=== PATIENT | female | born 1990 | race Caucasian/White ===

== ENCOUNTER 2016-07-30 14:41 | Emergency (ER) | payer SELFPAY ==
[~2016-07-30] VITALS: Ht 165.1 cm; Wt 70.0 kg
[~2016-07-30 14:41] MED LIST: METR500T10 PO
[2016-07-30 14:42] VITALS: BP 127/61; PULSE 93; RESP 14; TEMP 97.5; O2SAT 99
== END 2016-07-30 23:59 | disposition left against medical advice (07) ==
LOC: NED 14:41
DX: R10.9 Unspecified abdominal pain (principal); Z53.21 Procedure and treatment not carried out due to patient leaving prior to being seen by health care provider
CPT/HCPCS: 99281

== ENCOUNTER 2016-09-17 17:55 | Emergency (ER) | payer OTHER ==
[~2016-09-17] VITALS: Ht 165.1 cm; Wt 70.0 kg
[2016-09-17 17:57] VITALS: BP 129/72; PULSE 96; RESP 20; TEMP 97.8; O2SAT 100
[2016-09-17] MEDS ORDERED: AZITHROMYCIN PWD FOR SUSP 1 GM PACKET PO ONE (20:45)
[2016-09-17] MEDS ORDERED: cefTRIAXone 250 MG VIAL IM ONE (20:45)
--- NOTE | 2016-09-17 21:01 | PD ---
HPI Chief Complaint: Back/ Neck Pain or Injury Time Seen by Provider: 20:52 Travel History International Travel<30 days: No Contact w/Intl Traveler<30days: No Traveled to known affect area: No History of Present Illness HPI 25-year-old white female presents to emergency department with lower back pain. She states that she woke earlier this morning with severe lower back pain. She states is worse on the right side with radiation into her groin. She states that she's had sciatica in the past and that this is different. She feels that this is somehow related to a chronic pelvic pain that she has had along with a yellowish vaginal discharge. She states that she has been seen multiple times in the ER for the same. She states that she had not had cultures or antibiotics. She followed up with her [employer] doctor Dr. Michele who had to dilate her cervix and remove her IUD which was being implanted into her uterus. She states that she has had persistent yellowish vaginal discharge. She states that she feels febrile but has not documented a fever. She denies any abdominal pain. She's had no nausea vomiting. No diarrhea. No dysuria or frequency. She denies any trauma. IV drug use. PFSH Past Medical History Narrative Medical Sciatica, pyelonephritis, IUD complications Hx Anticoagulant Therapy: No Autoimmune Disease: No Blood Disorders: No Cardiovascular Problems: No Chemotherapy: No Cerebrovascular Accident: No Diabetes: No Diminished Hearing: No Genitourinary: No Musculoskeletal: No Neurologic: No Psychiatric: No Reproductive: Yes (ENDOMETRIOSIS) Respiratory: No Tetanus Vaccination: < 5 Years ?: Not Ovarian Cysts: Yes Past Surgical History Other Surgery: No Social History Alcohol Use: No Tobacco Use: Yes Substance Use: No Allergies-Medications (Allergen,Severity, Reaction): Coded Allergies: No Known Allergies (Verified , 09/17/16) Reported Meds & Prescriptions Reported Meds & Active Scripts Active Metronidazole 500 Mg Tab 500 Mg PO BID 7 Days Review of Systems Except as stated in HPI: all other systems reviewed are Neg General / Constitutional: Positive: Fever (subjective), No: Chills Eyes: No: Diploplia, Blurred Vision HENT: No: Headaches, Sore Throat Cardiovascular: No: Chest Pain or Discomfort, Palpitations Respiratory: No: Cough, Shortness of Breath Gastrointestinal: No: Nausea, Vomiting Genitourinary: Positive: Pelvic Pain, No: Urgency, Frequency, Dysuria Musculoskeletal: Positive: Limited ROM, Cramping, Pain Skin: No Rash, No Itching Physical Exam Narrative GENERAL: Well-developed, well-nourished in no apparent distress. Nontoxic appearing. HEAD: Normocephalic, atraumatic. EYES: Pupils equal round and reactive. Extraocular motions intact. No scleral icterus. No injection or drainage. ENT: Nose clear. Throat without erythema, tonsillar hypertrophy or exudate. Uvula midline. Airway patent. NECK: Trachea midline. Supple, nontender, moves head freely. No central bony tenderness or spasm. CARDIOVASCULAR: Regular rate and rhythm without murmurs, gallops, or rubs. RESPIRATORY: Clear to auscultation. Breath sounds equal bilaterally. No wheezes , rales, or rhonchi. GASTROINTESTINAL: Abdomen soft, non-tender exam to the abdomen patient does have some mild suprapubic tenderness, nondistended. No hepato-splenomegaly, or palpable masses. No guarding. EXTREMITIES: No clubbing, cyanosis, or edema. No joint tenderness. BACK: No central bony tenderness. Patient has reproducible right paralumbar tenderness. Without deformity. No flank tenderness.Positive straight leg raise on the right at 90. No saddle anesthesia. NEUROLOGICAL: Awake, alert and oriented x 3 .Cranial nerves grossly intact. Motor and sensory grossly within normal limits. Normal speech. Data Data Last Documented VS Vital Signs Date Time Temp Pulse Resp B/P Pulse Ox O2 Delivery O2 Flow Rate FiO2 09/17/16 17:57 97.8 96 20 129/72 100 Room Air Orders Complete Blood Count With Diff (09/17/16 20:38) Comprehensive Metabolic Panel (09/17/16 20:38) C-Reactive Protein (Crp) (09/17/16 20:38) Urinalysis - C+S If Indicated (09/17/16 20:38) Wet Prep Profile (09/17/16 20:38) Gc And Chlamydia Pcr (09/17/16 20:38) Iv Access Insert/Monitor (09/17/16 20:38) Ceftriaxone Inj (Rocephin Inj) (09/17/16 20:45) Azithromycin Powd Pack (Zithromax Powd P (09/17/16 20:45) [facility] Medical Decision Making Medical Screen Exam Complete: Yes Emergency Medical Condition: Yes Medical Record Reviewed: Yes Differential Diagnosis Differential diagnoses: Back strain, spasm, lumbar radiculopathy, vaginitis, ovarian cysts, pyelonephritis, UTI Narrative Course IV access is obtained. Routine laboratory tests sent for analysis. Patient's given Rocephin 250 IM and Zithromax 1 g by mouth. The patient will be moved to a medical pot for her pelvic and further evaluation and treatment. Patient's transfer care to the [facility] Mehrdad Hinojosa Sep 17, 2016 21:01
[2016-09-17 21:36] LABS: AUTOMATED NEUTROPHIL # 3.7 TH/MM3 (1.8-7.7); BASOPHIL % 0.6 % (0.0-2.0); EOSINOPHIL # 0.3 TH/MM3 (0-0.4); EOSINOPHIL % 4.5 % (0.0-4.0); HEMATOCRIT 41.5 % (35.0-46.0); HEMO FLAGS DIFF FINAL; LYMPH % 33.5 % (9.0-44.0); LYMPHOCYTE # 2.5 TH/MM3 (1.0-4.8); MEAN CELL VOLUME 91.4 FL (80.0-100.0); MEAN CORPUSCULAR HEMOGLOBIN 31.3 PG (27.0-34.0); MEAN CORPUSCULAR HGB CONC 34.3 % (32.0-36.0); MONO % 11.1 % (0.0-8.0); NEUT % 50.3 % (16.0-70.0); PLATELET COUNT 293 TH/MM3 (150-450); RED BLOOD COUNT 4.54 MIL/MM3 (4.00-5.30); RED CELL DISTRIBUTION WIDTH 12.8 % (11.6-17.2); WHITE BLOOD COUNT 7.5 TH/MM3 (4.0-11.0)
[2016-09-17 22:19] LABS: BACTERIA, URINE RARE /hpf; BLOOD, URINE NEG (NEG); COMMENT (UR) CULT NOT INDICATED; CULTURE IF INDICATED CULT NOT INDICATED; GLUCOSE,URINE NEG (NEG); KETONE, URINE NEG (NEG); NITRITE,URINE NEG (NEG); SQUAMOUS EPITHELIAL CELL URINE 1 /hpf (0-5); URINE COLOR COLORLESS (YELLW/STRAW)
[2016-09-17] MEDS ORDERED: ONDANSETRON HCL 4 MG/2 ML VIAL IV ONE (23:15)
[2016-09-17 23:19] LABS: ANION GAP 7 MEQ/L (5-15); AST (GOT) 14 U/L (15-37); BICARBONATE 27.5 MEQ/L (21.0-32.0); BLOOD UREA NITROGEN 9 MG/DL (7-18); CHLORIDE 106 MEQ/L (98-107); GLOMERULAR FILTRATION RATE 100 ML/MIN (>89); POTASSIUM 3.7 MEQ/L (3.5-5.1); SODIUM (NA) 140 MEQ/L (136-145)
[2016-09-17 23:23] LABS: ALKALINE PHOSPHATASE 89 U/L (45-117); ALT (GPT) 20 U/L (10-53); TOTAL BILIRUBIN ADULT 0.1 MG/DL (0.2-1.0)
[2016-09-18] MEDS ORDERED: MELO-1 PO (01:15)
--- NOTE | 2016-09-18 01:16 | PD ---
Data Data Last Documented VS Vital Signs Date Time Temp Pulse Resp B/P Pulse Ox O2 Delivery O2 Flow Rate FiO2 09/17/16 17:57 97.8 96 20 129/72 100 Room Air Orders Complete Blood Count With Diff (09/17/16 20:38) Comprehensive Metabolic Panel (09/17/16 20:38) C-Reactive Protein (Crp) (09/17/16 20:38) Urinalysis - C+S If Indicated (09/17/16 20:38) Wet Prep Profile (09/17/16 20:38) Gc And Chlamydia Pcr (09/17/16 20:38) Iv Access Insert/Monitor (09/17/16 20:38) Ceftriaxone Inj (Rocephin Inj) (09/17/16 20:45) Azithromycin Powd Pack (Zithromax Powd P (09/17/16 20:45) Ondansetron Inj (Zofran Inj) (09/17/16 23:15) Labs Laboratory Tests Test 09/17/16 09/17/16 09/17/16 09/18/16 21:04 21:50 22:20 00:10 White Blood Count 7.5 TH/MM3 Red Blood Count 4.54 MIL/MM3 Hemoglobin 14.2 GM/DL Hematocrit 41.5 % Mean Corpuscular Volume 91.4 FL Mean Corpuscular Hemoglobin 31.3 PG Mean Corpuscular Hemoglobin 34.3 % Concent Red Cell Distribution Width 12.8 % Platelet Count 293 TH/MM3 Mean Platelet Volume 8.8 FL Neutrophils (%) (Auto) 50.3 % Lymphocytes (%) (Auto) 33.5 % Monocytes (%) (Auto) 11.1 % Eosinophils (%) (Auto) 4.5 % Basophils (%) (Auto) 0.6 % Neutrophils # (Auto) 3.7 TH/MM3 Lymphocytes # (Auto) 2.5 TH/MM3 Monocytes # (Auto) 0.8 TH/MM3 Eosinophils # (Auto) 0.3 TH/MM3 Basophils # (Auto) 0.0 TH/MM3 CBC Comment DIFF FINAL Differential Comment Urine Color COLORLESS Urine Turbidity CLEAR Urine pH 6.0 Urine Specific [place] 1.005 Urine Protein NEG mg/dL Urine Glucose (UA) NEG mg/dL Urine Ketones NEG mg/dL Urine Occult Blood NEG Urine Nitrite NEG Urine Bilirubin NEG Urine Urobilinogen LESS THAN 2.0 MG/DL Urine Leukocyte Esterase NEG Urine RBC LESS THAN 1 /hpf Urine WBC 1 /hpf Urine Squamous Epithelial 1 /hpf Cells Urine Bacteria RARE /hpf Microscopic Urinalysis Comment CULT NOT INDICATED Sodium Level 140 MEQ/L Potassium Level 3.7 MEQ/L Chloride Level 106 MEQ/L Carbon Dioxide Level 27.5 MEQ/L Anion Gap 7 MEQ/L Blood Urea Nitrogen 9 MG/DL Creatinine 0.72 MG/DL Estimat Glomerular Filtration 100 ML/MIN Rate Random Glucose 86 MG/DL Calcium Level 9.1 MG/DL Total Bilirubin 0.1 MG/DL Aspartate Amino Transf 14 U/L (AST/SGOT) Alanine Aminotransferase 20 U/L (ALT/SGPT) Alkaline Phosphatase 89 U/L C-Reactive Protein 0.46 MG/DL Total Protein 7.5 GM/DL Albumin 4.0 GM/DL Clue Cells (Wet Prep) PRESENT Vaginal Trichomonas (Wet Prep) NONE SEEN Vaginal Yeast (Wet Prep) NONE SEEN MDM Supervised Visit with MAYRA: Yes Narrative Course The history, exam, and medical decision-making in the associated midlevel provider note were completed with my assistance. I reviewed and agree with the findings presented. I attest that I had a [id number] encounter with the patient on the same day, and personally performed and documented my assessment and findings in the medical record. *My assessment and Findings: This is a 25-year-old female who presents to the emergency department with several days of right flank pain and intermittent fevers and chills. She is fairly convinced that this is a side effect of her having her IUD removed. She's had increasing discharge and is concerned about a pelvic infection. She is well-appearing on exam and nontoxic. Labs are obtained which were all reassuring. Urinalysis is negative for infection or blood. A pelvic exam was performed which was fairly unremarkable. She had some white vaginal discharge in the vault but no cervical motion tenderness or adnexal tenderness. Patient was positive for bacterial vaginosis. 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 Diagnosis Primary Impression: Bacterial vaginosis Additional Impression: Back pain Qualified Code: M54.9 - Other acute back pain Patient Instructions: General Instructions Additional Instruction: If you develop severe or worsening abdominal pain, fever>100.4, persistent vomiting or inability to eat or drink return to the emergency department immediately. Follow up with your primary care physician in 1-2 days for a check-up. Med/Other Pt SpecificInfo: Prescription(s) given Scripts Meloxicam 15 Mg Tab15 Mg PO DAILY #14 TAB Ref 0 Prov:Alexa Childers MD 09/18/16 Disposition: 01 DISCHARGE HOME Condition: Stable Alexa Childers MD Sep 18, 2016 01:15
[2016-09-18] MEDS ORDERED: METR-1 PO (01:17)
[2016-09-18] MEDS ORDERED: METR0.7528 VAGINAL (01:18)
[2016-09-18] MEDS ORDERED: KETOROLAC TROMETHAMINE 30 MG/ML (IVP) VIAL IV PUSH ONE (01:30)
[2016-09-18 02:01] LABS: CHLAMYDIA PCR NOT DETECTED (NOT DETECT); NEISSERIA PCR NOT DETECTED (NOT DETECT)
== END 2016-09-18 02:03 | disposition home or self-care (01) ==
LOC: NEPB 17:55 → NEPA 09-18 02:03
DX: N76.0 Acute vaginitis (principal); M54.5 Low back pain; Z72.0 Tobacco use; Z87.39 Personal history of other diseases of the musculoskeletal system and connective tissue; Z87.448 Personal history of other diseases of urinary system; Z87.42 Personal history of other diseases of the female genital tract
CPT/HCPCS: 80053; 81001; 85025; 86140; 87210; 87491; 87591; 96372; 96374; 96375; 99283; J0696; J1885; J2405

== ENCOUNTER 2016-10-11 20:35 | Emergency (ER) | payer OTHER ==
[~2016-10-11] VITALS: Ht 165.1 cm; Wt 70.5 kg
[~2016-10-11 20:35] MED LIST changes: +MELO-1 PO; +METR-1 PO; +METR0.7528 VAGINAL
[2016-10-11 20:36] VITALS: BP 115/99; PULSE 86; RESP 16; TEMP 99.1; O2SAT 100
[2016-10-11 21:07] VITALS: BP 145/69
[2016-10-11] MEDS ORDERED: ONDANSETRON HCL 4 MG/2 ML VIAL IV ONE (21:15)
[2016-10-11] MEDS ORDERED: SODIUM CHLOR 0.9% 1000 ML INJ 1,000 ML IV ONE (21:15)
[2016-10-11] MEDS ORDERED: TETANUS/DIPHTHERIA TOXOID ADULT 0.5 ML VIAL IM ONE (21:15)
--- NOTE | 2016-10-11 21:17 | PD ---
HPI Chief Complaint: GI Complaint Time Seen by Provider: 21:04 Travel History International Travel<30 days: No Contact w/Intl Traveler<30days: No Traveled to known affect area: No History of Present Illness HPI The patient was seen and examined in the presence of the nurse. This patient complains of nausea and vomiting. Duration 2 days. Severity is moderate. She has no abdominal or pelvic pain or diarrhea or fever. He relates that 5 days ago she was bit in the right thigh by the neighbor's dog. Can't recall her last tetanus booster. No alleviating factors. No ill contacts. PFSH Past Medical History Hx Anticoagulant Therapy: No Autoimmune Disease: No Blood Disorders: No Cardiovascular Problems: No Chemotherapy: No Cerebrovascular Accident: No Diabetes: No Diminished Hearing: No Genitourinary: No Musculoskeletal: No Neurologic: No Psychiatric: No Reproductive: Yes (ENDOMETRIOSIS) Respiratory: No ?: Unknown Ovarian Cysts: Yes Past Surgical History Surgical History: No Previous Surgery Other Surgery: No Social History Alcohol Use: No Tobacco Use: Yes Substance Use: No Allergies-Medications (Allergen,Severity, Reaction): Coded Allergies: No Known Allergies (Verified , 10/11/16) Reported Meds & Prescriptions Reported Meds & Active Scripts Active Review of Systems General / Constitutional: No: Fever Eyes: No: Visual changes HENT: No: Headaches Cardiovascular: No: Chest Pain or Discomfort Respiratory: No: Shortness of Breath Gastrointestinal: Positive: Nausea, Vomiting, No: Abdominal Pain Genitourinary: No: Dysuria Musculoskeletal: No: Pain Skin: No Rash Neurologic: No: Weakness Psychiatric: No: Depression Endocrine: No: Polydipsia Hematologic/Lymphatic: No: Easy Bruising Physical Exam Narrative GENERAL: Well-nourished, well-developed patient in no apparent distress. SKIN: Focused skin assessment reveals no rash and nodules. Skin is Warm and dry. HEAD: Atraumatic. Normocephalic. EYES: Pupils equal and round. No scleral icterus. No injection or drainage. ENT: No nasal bleeding or discharge. Mucous membranes pink and moist. NECK: Trachea midline. No JVD. CARDIOVASCULAR: Regular rate and rhythm. No murmur appreciated. RESPIRATORY: No accessory muscle use. Clear to auscultation. Breath sounds equal bilaterally. GASTROINTESTINAL: Abdomen soft, non-tender, nondistended. Hepatic and splenic margins not palpable. MUSCULOSKELETAL: No obvious deformities. No clubbing. No cyanosis. No edema. There is a small scabbed over area without sign of infection. NEUROLOGICAL: Awake and alert. No obvious cranial nerve deficits. Motor grossly within normal limits. Normal speech. PSYCHIATRIC: Appropriate mood and affect; insight and judgment normal. Data Data Last Documented VS Vital Signs Date Time Temp Pulse Resp B/P Pulse Ox O2 Delivery O2 Flow Rate FiO2 10/11/16 21:07 145/69 10/11/16 20:36 99.1 86 16 100 Room Air Orders Tetanus/Diphtheria Tox Adult (Tetanus/Di (10/11/16 21:15) Ondansetron Inj (Zofran Inj) (10/11/16 21:15) Sodium Chlor 0.9% 1000 Ml Inj (Ns 1000 M (10/11/16 21:15) Complete Blood Count With Diff (10/11/16 21:12) Basic Metabolic Panel (Bmp) (10/11/16 21:12) Ed Urine Pregnancytest Poc (10/11/16 21:12) Urinalysis - C+S If Indicated (10/11/16 21:12) Labs Laboratory Tests Test 10/11/16 21:30 White Blood Count 9.1 TH/MM3 Red Blood Count 4.34 MIL/MM3 Hemoglobin 13.8 GM/DL Hematocrit 38.9 % Mean Corpuscular Volume 89.7 FL Mean Corpuscular Hemoglobin 31.7 PG Mean Corpuscular Hemoglobin 35.3 % Concent Red Cell Distribution Width 12.4 % Platelet Count 249 TH/MM3 Mean Platelet Volume 8.5 FL Neutrophils (%) (Auto) 58.1 % Lymphocytes (%) (Auto) 31.9 % Monocytes (%) (Auto) 7.0 % Eosinophils (%) (Auto) 2.5 % Basophils (%) (Auto) 0.5 % Neutrophils # (Auto) 5.3 TH/MM3 Lymphocytes # (Auto) 2.9 TH/MM3 Monocytes # (Auto) 0.6 TH/MM3 Eosinophils # (Auto) 0.2 TH/MM3 Basophils # (Auto) 0.0 TH/MM3 CBC Comment DIFF FINAL Differential Comment Urine Color LIGHT-YELLOW Urine Turbidity HAZY Urine pH 5.5 Urine Specific [place] 1.009 Urine Protein NEG mg/dL Urine Glucose (UA) NEG mg/dL Urine Ketones NEG mg/dL Urine Occult Blood NEG Urine Nitrite NEG Urine Bilirubin NEG Urine Urobilinogen LESS THAN 2.0 MG/DL Urine Leukocyte Esterase NEG Urine RBC 1 /hpf Urine WBC 2 /hpf Urine Squamous Epithelial 4 /hpf Cells Urine Mucus FEW /lpf Microscopic Urinalysis Comment CULT NOT INDICATED Sodium Level 140 MEQ/L Potassium Level 3.5 MEQ/L Chloride Level 105 MEQ/L Carbon Dioxide Level 28.0 MEQ/L Anion Gap 7 MEQ/L Blood Urea Nitrogen 9 MG/DL Creatinine 0.82 MG/DL Estimat Glomerular Filtration 86 ML/MIN Rate Random Glucose 86 MG/DL Calcium Level 8.5 MG/DL [facility] Medical Decision Making Medical Screen Exam Complete: Yes Emergency Medical Condition: Yes Medical Record Reviewed: Yes Differential Diagnosis Gastroenteritis, colitis, , UTI Narrative Course I have reviewed the patient's electronic medical record. IV placed I gave her IV Zofran and 1 L normal saline IV and tetanus booster CBC is normal Metabolic profile is normal Urinalysis is clean Urine is negative Abdomen is soft and benign and nontender Registration is filling out an animal control bite report so the patient can follow up to determine need for rabies vaccination series. Offered her nausea medication on prescription which she declines. She will follow-up with animal control. Diagnosis Primary Impression: Nausea and vomiting Qualified Code: R11.2 - Non-intractable vomiting with nausea, unspecified vomiting type Additional Impression: Dog bite Qualified Code: W54.0XXA - Dog bite, initial encounter Additional Instructions: I have recommended clear liquids for 24 hours, then gradually advance as tolerated. The patient was advised to follow up with their physician and return if they worsen. Follow-up with animal control to discuss rabies vaccination Med/Other Pt SpecificInfo: Other Disposition: 01 DISCHARGE HOME Condition: Stable Dakota Marinelli MD Oct 11, 2016 21:17
[2016-10-11 22:08] LABS: AUTOMATED NEUTROPHIL # 5.3 TH/MM3 (1.8-7.7); BASOPHIL % 0.5 % (0.0-2.0); EOSINOPHIL # 0.2 TH/MM3 (0-0.4); EOSINOPHIL % 2.5 % (0.0-4.0); HEMATOCRIT 38.9 % (35.0-46.0); HEMO FLAGS DIFF FINAL; LYMPH % 31.9 % (9.0-44.0); LYMPHOCYTE # 2.9 TH/MM3 (1.0-4.8); MEAN CELL VOLUME 89.7 FL (80.0-100.0); MEAN CORPUSCULAR HEMOGLOBIN 31.7 PG (27.0-34.0); MEAN CORPUSCULAR HGB CONC 35.3 % (32.0-36.0); NEUT % 58.1 % (16.0-70.0); PLATELET COUNT 249 TH/MM3 (150-450); RED BLOOD COUNT 4.34 MIL/MM3 (4.00-5.30); RED CELL DISTRIBUTION WIDTH 12.4 % (11.6-17.2); WHITE BLOOD COUNT 9.1 TH/MM3 (4.0-11.0)
[2016-10-11 22:10] LABS: BLOOD, URINE NEG (NEG); COMMENT (UR) CULT NOT INDICATED; CULTURE IF INDICATED CULT NOT INDICATED; GLUCOSE,URINE NEG (NEG); KETONE, URINE NEG (NEG); MUCUS URINE FEW /lpf (OCC); NITRITE,URINE NEG (NEG); PH, URINE 5.5 (5.0-8.5); SQUAMOUS EPITHELIAL CELL URINE 4 /hpf (0-5); URINE COLOR LIGHT-YELLOW (YELLW/STRAW)
[2016-10-11 22:48] LABS: POTASSIUM 3.5 MEQ/L (3.5-5.1)
== END 2016-10-12 00:03 | disposition home or self-care (01) ==
LOC: NEPE 20:35
DX: R11.2 Nausea with vomiting, unspecified (principal); S70.371A Other superficial bite of right thigh, initial encounter; Z23 Encounter for immunization; Z72.0 Tobacco use; Z87.42 Personal history of other diseases of the female genital tract; W54.0XXA Bitten by dog, initial encounter
CPT/HCPCS: 80048; 81001; 84703; 85025; 90471; 90714; 96361; 96374; 99284; J2405; J7030

== ENCOUNTER 2016-11-01 23:02 | Emergency (ER) | payer OTHER ==
[~2016-11-01] VITALS: Ht 172.7 cm; Wt 65.0 kg
[2016-11-01 23:05] VITALS: BP 148/76; PULSE 93; RESP 20; TEMP 98.3; O2SAT 100
[2016-11-01] MEDS ORDERED: SODIUM CHLOR 0.9% 1000 ML INJ 1,000 ML IV SCH (23:30)
[2016-11-01] MEDS ORDERED: SODIUM CHLORIDE 0.9% FLUSH 10 ML FLUSH IVF PRN (23:30)
[2016-11-01] MEDS ORDERED: SODIUM CHLOR 0.9% 1000 ML INJ 1,000 ML IV ONE (23:30)
[2016-11-01 23:31] VITALS: RESP 16; O2SAT 99
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
[2016-11-01 23:45] LABS: AUTOMATED NEUTROPHIL # 4.8 TH/MM3 (1.8-7.7); BASOPHIL % 0.4 % (0.0-2.0); EOSINOPHIL # 0.2 TH/MM3 (0-0.4); EOSINOPHIL % 1.8 % (0.0-4.0); HEMATOCRIT 41.2 % (35.0-46.0); HEMO FLAGS DIFF FINAL; LYMPH % 39.6 % (9.0-44.0); LYMPHOCYTE # 3.7 TH/MM3 (1.0-4.8); MEAN CELL VOLUME 91.3 FL (80.0-100.0); MEAN CORPUSCULAR HEMOGLOBIN 30.3 PG (27.0-34.0); MEAN CORPUSCULAR HGB CONC 33.2 % (32.0-36.0); MONO % 7.3 % (0.0-8.0); NEUT % 50.9 % (16.0-70.0); PLATELET COUNT 238 TH/MM3 (150-450); RED BLOOD COUNT 4.51 MIL/MM3 (4.00-5.30); RED CELL DISTRIBUTION WIDTH 12.9 % (11.6-17.2); WHITE BLOOD COUNT 9.5 TH/MM3 (4.0-11.0)
[2016-11-01 23:57] LABS: ALT (GPT) 24 U/L (10-53); ANION GAP 8 MEQ/L (5-15); AST (GOT) 19 U/L (15-37); BICARBONATE 26.1 MEQ/L (21.0-32.0); BLOOD UREA NITROGEN 11 MG/DL (7-18); CHLORIDE 106 MEQ/L (98-107); GLOMERULAR FILTRATION RATE 74 ML/MIN (>89); MAGNESIUM 2.4 MG/DL (1.5-2.5); POTASSIUM 3.3 MEQ/L (3.5-5.1); SODIUM (NA) 140 MEQ/L (136-145)
[2016-11-01 23:58] LABS: APTT (PATIENT) 27.4 SEC (24.3-30.1)
[2016-11-02 00:01] LABS: ALKALINE PHOSPHATASE 80 U/L (45-117); CREATINE KINASE 118 U/L (26-192); TOTAL BILIRUBIN ADULT 0.5 MG/DL (0.2-1.0)
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
[2016-11-02 01:00] VITALS: BP 114/57; PULSE 73; RESP 18; O2SAT 98
[2016-11-02] MEDS ORDERED: KETOROLAC TROMETHAMINE 30 MG/ML (IVP) VIAL IV PUSH ONE (01:00)
[2016-11-02 01:11] LABS: BACTERIA, URINE RARE /hpf; BLOOD, URINE NEG (NEG); COMMENT (UR) CATH-CULTURE IND; CULTURE IF INDICATED CATH CULTURE IND; GLUCOSE,URINE NEG (NEG); KETONE, URINE NEG (NEG); MUCUS URINE FEW /lpf (OCC); NITRITE,URINE NEG (NEG); SQUAMOUS EPITHELIAL CELL URINE 4 /hpf (0-5); URINE COLOR YELLOW (YELLW/STRAW)
[2016-11-02 01:15] LABS: AMPHETAMINE, URINE NEG (NEG); BARBITURATES, URINE NEG (NEG); COCAINE, URINE POS (NEG)
[2016-11-02] MEDS ORDERED: POTASSIUM CHLORIDE 20 MEQ CONTROLLED RELEASE TAB PO ONE (01:15)
[2016-11-02] MEDS ORDERED: SODIUM CHLORID 0.9% 500 ML INJ 500 ML IV ONE (01:15)
[2016-11-02] MEDS ORDERED: ROBA750T PO (02:50)
--- NOTE | 2016-11-02 14:58 | EKG ---
Date Performed: 11/01/2016 Time Performed: 23:14:24 PTAGE: 26 years EKG: SINUS TACHYCARDIA NONSPECIFIC T-WAVE ABNORMALITY ABNORMAL ECG NO PREVIOUS TRACING DOCTOR: Sheree Berman Interpretating Date/Time 11/02/2016 14:57:27
== END 2016-11-02 03:00 | disposition home or self-care (01) ==
LOC: NEPC 23:02
DX: T75.4XXA Electrocution, initial encounter (principal); R20.0 Anesthesia of skin; R00.0 Tachycardia, unspecified; F17.210 Nicotine dependence, cigarettes, uncomplicated; W86.1XXA Exposure to industrial wiring, appliances and electrical machinery, initial encounter; Y93.C1 Activity, computer keyboarding; Y92.9 Unspecified place or not applicable; Y99.0 Civilian activity done for income or pay
CPT/HCPCS: 70450; 71010; 73502; 80053; 80307; 81001; 82550; 83735; 84484; 84703; 85025; 85610; 85730; 87086; 93005; 96361; 96374; 99284; J1885; J7030; J7040

== ENCOUNTER 2017-02-19 15:13 | Emergency (ER) | payer OTHER ==
[~2017-02-19] VITALS: Ht 165.1 cm; Wt 75.0 kg
[~2017-02-19 15:13] MED LIST changes: -MELO-1 PO; -METR-1 PO; -METR0.7528 VAGINAL; -METR500T10 PO; +ROBA750T PO
[2017-02-19 15:15] VITALS: BP 123/77; PULSE 88; RESP 20; TEMP 98.8; O2SAT 98
--- NOTE | 2017-02-19 15:28 | PD ---
Physical Exam Time Seen by Provider: 15:25 Narrative 89yo F sent by PCP for c/o migraine, Nausea, dizziness since 10am this morning. Has been treated for this before and told by Senior Sustainability Advisor she has ocular migraines. Had CT scan which was normal per patient. Waiting for insurance to approve MRI. Patient seen in triage. VS reviewed. Awaiting bed placement. Data Data Last Documented VS Vital Signs Date Time Temp Pulse Resp B/P (MAP) Pulse Ox O2 Delivery O2 Flow Rate FiO2 02/19/17 15:15 98.8 88 20 123/77 (92) 98 Room Air MDM Supervised Visit with MAYRA: Isis Olivarez Feb 19, 2017 15:28
[2017-02-19] MEDS ORDERED: SUMA25TA2 PO (15:34)
[2017-02-19] MEDS ORDERED: AMOX250C CHEW (15:35)
[2017-02-19] MEDS ORDERED: SUMAtriptan INJ 6 MG/0.5 ML VIAL SQ ONE (16:15)
--- NOTE | 2017-02-19 16:20 | PD ---
HPI Chief Complaint: Headache Time Seen by Provider: 16:14 Travel History International Travel<30 days: No Contact w/Intl Traveler<30days: No Traveled to known affect area: No History of Present Illness HPI Patient's 26-year-old female presenting to the emergency department for evaluation of a migraine. Patient states it started at 10 AM this morning and is accompanied by nausea, dizziness and visual changes. Patient reports that she has ocular migraines. She has been seen and evaluated by a neurologist at [facility]. Currently out of her sumatriptan and in her primary care provider sent her to emergency department to be evaluated. Patient states pain is a 7 out of 10, she is not nauseated at this time. Has been no alleviating factors, and the light exacerbates her symptoms. She has no other complaints at this time. PFSH Past Medical History Hx Anticoagulant Therapy: No Arthritis: Yes Autoimmune Disease: No Blood Disorders: No Anxiety: Yes (ptsd and adjustment disorder) Depression: Yes Cardiovascular Problems: No Chemotherapy: No Cerebrovascular Accident: No Diabetes: No Diminished Hearing: No Genitourinary: No Musculoskeletal: No Neurologic: No Psychiatric: No Reproductive: Yes (ENDOMETRIOSIS) Respiratory: No Migraines: Yes Influenza Vaccination: No ?: Not Ovarian Cysts: Yes Past Surgical History Other Surgery: Yes (IUD REMOVAL) Social History Alcohol Use: Yes (weekly) Tobacco Use: Yes (1/2-1PPD) Substance Use: No (marijuana weekly) Allergies-Medications (Allergen,Severity, Reaction): Coded Allergies: No Known Allergies (Verified , 02/19/17) Reported Meds & Prescriptions Reported Meds & Active Scripts Active Reported Amoxicillin 250 Mg Chew Unknown Dose CHEW TID Sumatriptan (Sumatriptan Succinate) 25 Mg Tab 25 Mg PO ONCE PRN If a satisfactory response has not been obtained at 2 hours, a second dose may be administered Review of Systems Except as stated in HPI: all other systems reviewed are Neg Eyes: Positive: Visual changes HENT: Positive: Headaches Gastrointestinal: Positive: Nausea Neurologic: Positive: Dizziness Physical Exam Narrative GENERAL: Well-developed, well-nourished, alert female. Resting comfortably in no acute distress. SKIN: Warm and dry. HEAD: Atraumatic. Normocephalic. EYES: Pupils equal and round. No scleral icterus. No injection or drainage. Extra ocular movements are intact. ENT: No nasal bleeding or discharge. Mucous membranes pink and moist. NECK: Trachea midline. No JVD. CARDIOVASCULAR: Regular rate and rhythm. RESPIRATORY: No accessory muscle use. Clear to auscultation. Breath sounds equal bilaterally. GASTROINTESTINAL: Abdomen soft, non-tender, nondistended. Hepatic and splenic margins not palpable. MUSCULOSKELETAL: Extremities without clubbing, cyanosis, or edema. No obvious deformities. NEUROLOGICAL: Awake and alert. No obvious cranial nerve deficits. Motor grossly within normal limits. Five out of 5 muscle strength in the arms and legs. Normal speech. PSYCHIATRIC: Appropriate mood and affect; insight and judgment normal. Data Data Last Documented VS Vital Signs Date Time Temp Pulse Resp B/P (MAP) Pulse Ox O2 Delivery O2 Flow Rate FiO2 02/19/17 15:15 98.8 88 20 123/77 (92) 98 Room Air Orders Orders Sumatriptan Inj (Imitrex Inj) (02/19/17 16:15) [facility] Medical Decision Making Medical Screen Exam Complete: Yes Emergency Medical Condition: Yes Interpretation(s) Vital Signs Date Time Temp Pulse Resp B/P (MAP) Pulse Ox O2 Delivery O2 Flow Rate FiO2 02/19/17 15:15 98.8 88 20 123/77 (92) 98 Room Air Differential Diagnosis Migraine versus cluster headache versus tension type headache versus other Narrative Course Patient is a 26-year-old female presenting to emergency for evaluation of a migraine that started 10 AM this morning. Patient has history of the same, her symptoms are consistent with prior headaches. No focal deficits noted on exam. She normally takes sumatriptan but is out of her medication until tomorrow. Patient's neurologist prescribed daily medication to prevent the headaches that she does not start that until tomorrow, she does not know the name of the medication. Patient reports that she was seen and evaluated at [facility] last month and had a negative CT of her brain. Patient is scheduled for outpatient MRI. She is uncertain of her last menstrual cycle, she is currently on Depo-Provera. Patient will be given dose of subcutaneous sumatriptan at this time. 1830 patient reassessed, she reports improvement in her symptoms. Patient to follow-up with neurologist and primary doctor as scheduled. She is encouraged to take medications as directed. She is advised to return to emergency department immediately for any new or worsening symptoms. Patient verbalized understanding of these instructions. Patient is stable for discharge. Diagnosis Primary Impression: Migraine Qualified Codes: G43.909 - Migraine, unspecified, not intractable, without status migrainosus Referrals: Neurologist Primary Care Physician Patient Instructions: General Instructions, Migraine Headache (ED), Ocular Migraine (GEN) Additional Instructions: Follow up with your primary doctor and neurologist as scheduled Return to emergency department immediately for any new or worsening symptoms Med/Other Pt SpecificInfo: No Change to Meds Disposition: 01 DISCHARGE HOME Condition: Stable Shania Cortez Feb 19, 2017 16:20
[2017-02-19 18:51] VITALS: BP 120/74
== END 2017-02-19 18:52 | disposition home or self-care (01) ==
LOC: NEPD 15:13
DX: G43.909 Migraine, unspecified, not intractable, without status migrainosus (principal); R42 Dizziness and giddiness; R11.0 Nausea; F43.10 Post-traumatic stress disorder, unspecified; M13.80 Other specified arthritis, unspecified site; F43.20 Adjustment disorder, unspecified; F17.200 Nicotine dependence, unspecified, uncomplicated
CPT/HCPCS: 96372; 99284; J3030